=== PATIENT | male | born 2005 | race Caucasian/White ===

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

== ENCOUNTER 2024-08-22 22:31 | Outpatient (REF) | payer MEDICAID, SELFPAY ==
--- OUTSIDE RECORDS SUMMARY | 2024-08-22 22:33 | XMS_ITS | Encounter Summary ---
Author Organization [facility] [place] [address] Care Team Providers Care Talking Books Library Clerk Name Role Phone Gricel Geronimo MD Primary Care Provider [phone] Encounter Details Date Type Department Care Team (Late st Contact Info) Description 08/06/2020 Ancillary Procedure Radiology Library at [facility] [place] [address] Gricel Geronimo MD [address] [place], [place] [id number] Social History Tobacco Use Types Packs/Day Years Used Date Smoking Tobacco: Never Assessed Sex and Gender Information Value Date Recorded Sex Assigned at Not on file Gender Identity Not on file Sexual Orientation Not on file documented as of this encounter Plan of Treatment Not on file documented as of this encounter Procedures Procedure Name Priority Date/Time Associated Diagnosis Comments FILM LIBRARY STORAGE ONLY DX HAND Routine 08/06/2020 12:00 AM EDT documented in this encounter Results * Film Library- Storage Only DX Hand (08/06/2020 12:00 AM EDT) Narrative RAD - 08/07/2020 5:03 PM EDT This exam is auto-finalizing. It's purpose is for storage only. Gricel Geronimo MD IMG FILM LIBRARY ORD ERABLES [place], [place] documented in this encounter Visit Diagnoses Not on filedocumented in this encounter Care Teams Talking Books Library Clerk Relationship Specialty Start Date End Date Gricel Geronimo MD [address] [place] [address] PCP - General Pediatrics 07/09/18 documented as of this encounter
--- OUTSIDE RECORDS SUMMARY | 2024-08-22 22:33 | XMS_ITS | Encounter Summary ---
Author Organization [facility] [place] [address] Care Team Providers Care Sail Repairer Name Role Phone Gricel Geronimo MD Primary Care Provider [phone] Encounter Details Date Type Department Care Team (Late st Contact Info) Description 09/21/2020 Telephone Pediatric [place] [phone] Isabela Watkins APRN [facility] PEDIATRIC [place] [address] Social History Tobacco Use Types Packs/Day Years Used Date Smoking Tobacco: Never Smokeless Tobacco: Never Sex and Gender Information Value Date Recorded Sex Assigned at Not on file Gender Identity Not on file Sexual Orientation Not on file documented as of this encounter Miscellaneous Notes * Telephone Encounter - Isabela Watkins APRN - 09/21/2020 10:37 AM EST Results for BROOKLYNN GUERRERO ( ) as of 09/21/2020 10:37 Ref. Range 09/14/2020 08:50 09/14/2020 09:20 09/14/2020 09:50 09/14/2020 10:20 09/14/2020 10:55 09/14/2020 11:30 09/14/2020 12:00 Cortisol Latest Units: mcg/dL 17.3 Growth Hormone Latest Units: ng/mL 15.6 4.1 2.4 1.0 0.6 1.5 5.2 Growth H. Time Unknown 0 Min. 30 Min. Post cloNIDine 60 Min. Post Arginine 90 Min. Post cloNIDine 0Min. Post Arginine 30 Min. Post Arginine 60 Min. Post cloNIDine A/P Provocative testing with one value (baseline) > 10, ruling out GH deficiency. To continue with Anastrozole as prescribed. Will reassess growth velocity in six months. If sub optimal, will try to obtain GH due to GH stimulation values < 10. Left message re: above results and plan. documented in this encounter Plan of Treatment Not on file documented as of this encounter Visit Diagnoses Not on filedocumented in this encounter Care Teams Sail Repairer Relationship Specialty Start Date End Date Gricel Geronimo MD [address] [place] [address] PCP - General Pediatrics 07/09/18 documented as of this encounter
--- OUTSIDE RECORDS SUMMARY | 2024-08-22 22:33 | XMS_ITS | Encounter Summary ---
Author Organization [facility] [place] [address] Care Team Providers Care Audit Manager Name Role Phone Gricel Geronimo MD Primary Care Provider [phone] Encounter Details Date Type Department Care Team (Late st Contact Info) Description 10/21/2022 Orders Only [place] [address] Isabela Watkins APRN [facility] [place] [address] Social History Tobacco Use Types Packs/Day Years [...] on filedocumented in this encounter Care Teams Audit Manager Relationship Specialty Start Date End Date Gricel Geronimo MD [address] [place] [address] [place] [address] PCP - General Pediatrics 07/09/18 documented as of this encounter
--- OUTSIDE RECORDS SUMMARY | 2024-08-22 22:33 | XMS_ITS | Encounter Summary ---
Author Organization [facility] [place] [address] Care Team Providers Care Medicine Aide Name Role Phone Gricel Geronimo MD Primary Care Provider [phone] Encounter Details Date Type Department Care Team (Late st Contact Info) Description 09/10/2020 Telephone Pediatric [place] [phone] Isabela Watkins APRN [facility] PEDIATRIC [place] [address] Social History Tobacco Use Types Packs/Day Years Used Date Smoking Tobacco: Never Assessed Sex and Gender Information Value Date Recorded Sex Assigned at Not on file Gender Identity Not on file Sexual Orientation Not on file documented as of this encounter Miscellaneous Notes * Telephone Encounter - Isabela Watkins APRN - 09/10/2020 3:56 PM EST Received call from mom. After reviewing potential side effects, family would like to move forth with Anastrozole. GHT scheduled for 09/14/20. documented in this encounter Plan of Treatment Not on file documented as of this encounter Visit Diagnoses Diagnosis Short stature documented in this encounter Care Teams Medicine Aide Relationship Specialty Start Date End Date Gricel Geronimo MD [address] [place] [address] [place] [address] PCP - General Pediatrics 07/09/18 documented as of this encounter
--- OUTSIDE RECORDS SUMMARY | 2024-08-22 22:33 | XMS_ITS | Encounter Summary ---
Author Organization [facility] Address [address] [place] [address] Care Team Providers Care Administrative Clerk Name Role Phone Unavailable Primary Care Provider Unavailabl e Encounter Details Date Type Department Care Team (Late st Contact Info) Description 07/20/2021 Lab Requisition [facility] Pathology & Laboratory Medicine - [facility] [address] [place] [address] Outr Resulting Lab, Provider Social History Tobacco Use Types Packs/Day Years Used Date Smoking Tobacco: Never Assessed Sex and Gender Information Value Date Recorded Sex Assigned at Not on file Legal Sex Male 10:17 EDT Gender Identity Not on file Sexual Orientation Not on file documented as of this encounter Plan of Treatment Not on file documented as of this encounter Procedures Procedure Name Priority Date/Time Associated Diagnosis Comments ZZCOVID-19 TEST [facility] PCR Today 07/19/2021 17:05 EDT COVID-19 TESTING Routine 07/19/2021 17:0 5 EDT documented in this encounter Results * COVID-19 TEST [facility] PCR (07/19/2021 17:05 EDT) Swab ENTIRE NASOPHARYNX / Unknown 07/19/2021 17:05 EDT 07/20/2021 16:53 EDT us Provider Outr Resulting Lab MICROBIOLOGY - GENER AL ORDERABLES Final Result [facility] [address] [place] [address] * COVID-19 TESTING (07/19/2021 17:05 EDT) COVID-19 rt-PCR Result Negative Negative 07/21/2021 15:29 EDT [facility] Comment: This test has not been FDA cleared or approved. This test has been authorized by FDA under an EUA for use by authorized laboratories. This test has been authorized only for detection of nucleic acid from 2019-nCoV, not for any other viruses or pathogens. This test is only authorized for the duration of the declaration that circumstances exist justifying the authorization of emergency use of in vitro diagnostic tests for detection and/or diagnosis of 2019-nCoV under section 564(b)(1) of Act, 21 U.S.C ?? 360bbb-3(b) (1), unless the authorization is terminated or revoked sooner. Negative results do not preclude 2019-nCoV infection and should not be used as the sole basis for treatment or other patient management decisions. Negative results must be combined with clinical observations, patient history, and epidemiological information. This test was developed and its performance characteristics determined by [facility]. It has not been cleared or approved by the US Food and Drug Administration. FDA does not require this test to go through premarket FDA review. This test is used for clinical purposes. It should not be regarded as investigational or for research. This laboratory is certified under the Clinical Laboratory Improvement Amendments (CLIA) as qualified to perform high complexity clinical laboratory testing. This test is based on the CDC COVID-19 Emergency Use Authorization (EUA) assay, with minor modification as defined by the FDA Performed on the Eligibleo 7 Pro RT-PCR System. Performing Lab [facility] 07/21/2021 15:29 EDT [facility] Swab 07/19/2021 17:0 5 EDT 07/20/2021 16:53 EDT us Provider Outr Resulting Lab MICROBIOLOGY - GENER AL ORDERABLES Final Result [facility] [address] [place] [address] documented in this encounter Visit Diagnoses Not on filedocumented in this encounter
--- OUTSIDE RECORDS SUMMARY | 2024-08-22 22:33 | XMS_ITS | Encounter Summary ---
Author Organization [facility] [place] [address] Care Team Providers Care Dental Practitioner Name Role Phone Gricel Geronimo MD Primary Care Provider [phone] Encounter Details Date Type Department Care Team (Late st Contact Info) Description 10/24/2022 Telephone Pediatric [place] [address] Isabela Watkins APRN [facility] [place] [address] Social History Tobacco Use Types Packs/Day Years Used Date Smoking Tobacco: Never Smokeless Tobacco: Never Sex and Gender Information Value Date Recorded Sex Assigned at Not on file Gender Identity Not on file Sexual Orientation Not on file documented as of this encounter Miscellaneous Notes * Telephone Encounter - Isabela Watkins APRN - 10/24/2022 12:31 PM EST Received written copy of bone age 110/18/22 with radiology reading of BA = 16 years (G&P), showing that epiphyses are closed. No further treatment indicated. Tried calling number on file several times. No answer. No voice mail set up. documented in this encounter Plan of Treatment Not on file documented as of this encounter Visit Diagnoses Not on filedocumented in this encounter Care Teams Dental Practitioner Relationship Specialty Start Date End Date Gricel Geronimo MD [address] [place] [address] [place] [address] PCP - General Pediatrics 07/09/18 documented as of this encounter
--- OUTSIDE RECORDS SUMMARY | 2024-08-22 22:33 | XMS_ITS | Clinical Summary ---
Author Organization [facility] [place] [address] Care Team Providers Care Retail Cashier Associate Name Role Phone Gricel Geronimo MD Primary Care Provider [phone] Allergies Active Allergy Reactions Criticality Noted Date Comments Cefdinir Rash 09/14/2020 Penicillins Rash 09/14/2020 Medications No known medications Active Problems Problem Noted Date Diagnosed Date Short stature Pubertal delay Allergies Anxiety Depression Autism Family History Medical History Relation Comments Asthma Father Mental Illness Father Depression Mother Autoimmune Disorder Neg Hx Celiac Disease Neg Hx Other Neg Hx short stature Thyroid Disease Neg Hx Relation Status Comments Father Mother Alive Sister Alive Social History Tobacco Use Types Packs/Day Years Used Date Smoking Tobacco: Never Smokeless Tobacco: Never Sex and Gender Information Value Date Recorded Sex Assigned at Not on file Gender Identity Not on file Sexual Orientation Not on file Last Filed Vital Signs Vital Sign Reading Time Taken Comments Blood Pressure 127/67 08/06/2021 10:50 AM EDT Pulse 78 08/06/2021 10:50 AM EDT Temperature - - Respiratory Rate - - Oxygen Saturation - - Inhaled Oxygen Concentration - - Weight 62.5 kg (137 lb 14.4 oz) 021 10:50 AM EDT Height 164.9 cm (5' 4.92) 08/06/2021 1 0:50 AM EDT Body Mass Index 23 08/06/2021 10:50 AM EDT Plan of Treatment Health Maintenance Due Date Last Done Comments HPV vaccine (1 - Male 3-dose series) 02/25/2019 HIV screen 02/25/2022 Hepatitis C Screening 02/25/2022 Hepatitis B vaccine (0-59 yrs) (1) 02/25/2023 Tetanus/Diphtheria/Pertussis Vaccines (1 - Tdap) 02/25 Covid-19 Vaccine (1 - 2024-25 season) 2024 Influenza (Flu) vaccine (1 o f 1 - Influenza standard series) 06/09/2024 Care Teams Retail Cashier Associate Relationship Specialty Start Date End Date Gricel Geronimo MD [address] [place] [place] [address] PCP - General Pediatrics 07/09/18
--- OUTSIDE RECORDS SUMMARY | 2024-08-22 22:33 | XMS_ITS | Encounter Summary ---
Author Organization [facility] [place] [address] Care Team Providers Care Gate Shear Operator Name Role Phone Gricel Geronimo MD Primary Care Provider [phone] Encounter Details Date Type Department Care Team (Late st Contact Info) Description 04/05/2021 Orders Only Pediatric [place] [address] Angeline Petersen, MISSION COORDINATOR [facility] DR PEDIATRIC [place] [address] Short stature Social History Tobacco Use Types Packs/Day Years [...] stature documented in this encounter Care Teams Gate Shear Operator Relationship Specialty Start Date End Date Gricel Geronimo MD [address] [place] [address] [place] [address] PCP - General Pediatrics 07/09/18 documented as of this encounter
--- OUTSIDE RECORDS SUMMARY | 2024-08-22 22:33 | XMS_ITS | Encounter Summary ---
Author Organization [facility] [address] Care Team Providers Care Plastic Welder Name Role Phone Gricel Geronimo MD Primary Care Provider [phone] Encounter Details Date Type Department Care Team (Late st Contact Info) Description 09/10/2020 Telephone Pediatric [place] [phone] Isabela Watkins APRN [facility] [place] [address] Social History Tobacco Use Types Packs/Day Years Used Date Smoking Tobacco: Never Assessed Sex and Gender Information Value Date Recorded Sex Assigned at Not on file Gender Identity Not on file Sexual Orientation Not on file documented as of this encounter Miscellaneous Notes * Telephone Encounter - Isabela Watkins APRN - 09/10/2020 3:43 PM EST Results for BROOKLYNN GUERRERO ( ) as of 09/10/2020 15:39 Ref. Range 09/07/2020 14:44 WBC Latest Ref Range: 4.5 - 13.0 x10(3)/mcL 6.5 RBC Latest Ref Range: 4.50 - 5.30 x10(6)/mcL 4.51 Hemoglobin Latest Ref Range: 13.0 - 16.0 gm/dL 13.3 Hematocrit Latest Ref Range: 37.0 - 49.0 % 39.8 MCV Latest Ref Range: 76.0 - 96.0 fL 88.2 MCH Latest Ref Range: 25.0 - 35.0 pg 29.5 MCHC Latest Ref Range: 32.0 - 36.5 gm/dL 33.4 RDWSD Latest Ref Range: 36.0 - 45.0 fL 39.2 RDWCV Latest Ref Range: 0.0 - 14.5 % 12.2 Platelets Latest Ref Range: 145 - 370 x10(3)/mcL 321 MPV Latest Ref Range: 7.6 - 12.9 fL 10.1 nRBC % Auto Latest Units: % 0.0 nRBC Abs Auto Latest Ref Range: 0.000 - 0.000 x10(3)/mcL 0.000 Neutr Abs (ANC) Latest Ref Range: 1.50 - 8.00 x10(3)/mcL 3.23 Neutrophils % Latest Units: % 50.0 Immature Gran % Latest Units: % 0.20 Lymphocytes % Latest Units: % 42.1 Monocytes % Latest Units: % 6.0 Eosinophils % Latest Units: % 1.5 Basophils % Latest Units: % 0.2 Ivania Gran Abs Latest Ref Range: 0.00 - 0.04 x10(3)/mcL 0.01 Lymphocytes Abs Latest Ref Range: 1.2 - 5.2 x10(3)/mcL 2.7 Monocyte Abs Latest Ref Range: 0.2 - 1.0 x10(3)/mcL 0.4 Eosinophils Abs Latest Ref Range: 0.0 - 0.4 x10(3)/mcL 0.1 Basophils Abs Latest Ref Range: 0.0 - 0.1 x10(3)/mcL 0.0 Sed Rate Latest Ref Range: 2 - 28 mm/hr 3 Sodium Latest Ref Range: 135 - 145 mmol/L 140 Potassium Latest Ref Range: 3.5 - 5.0 mmol/L 4.0 Chloride Latest Ref Range: 98 - 107 mmol/L 102 CO2 Latest Ref Range: 22 - 31 mmol/L 28 Anion Gap Latest Ref Range: 5 - 15 mmol/L 10 BUN Latest Ref Range: 10 - 20 mg/dL 8 (L) Creatinine Latest Ref Range: 0.51 - 1.00 mg/dL 0.52 Estimated GFR Latest Ref Range: >=60 mL/min/1.73 m?? See note eGFR Latest Ref Range: >=60 mL/min/1.73 m?? See note Calcium Latest Ref Range: 8.5 - 10.5 mg/dL 9.7 Glucose Lvl Latest Ref Range: 65 - 199 mg/dL 97 Total Protein Latest Ref Range: 6.4 - 8.3 gm/dL 7.4 Albumin Latest Ref Range: 3.2 - 5.2 gm/dL 5.1 Total Bilirubin Latest Ref Range: <=1.0 mg/dL 0.8 Alk Phos Latest Ref Range: 82 - 331 unit/L 237 AST Latest Ref Range: 10 - 40 unit/L 22 ALT Latest Ref Range: 0 - 40 unit/L 15 IgA Latest Ref Range: 61 - 348 mg/dL 215 TTG IgA Ab Latest Ref Range: 0.1 - 10.0 u/ml 0.3 Free T4 Latest Ref Range: 0.93 - 1.70 ng/dL 1.11 TSH Latest Ref Range: 0.27 - 4.20 mcIU/mL 2.16 Prolactin Latest Ref Range: 4.0 - 15.2 ng/mL 11.9 IGF Bind Prot-3 Latest Units: mcg/mL 7.2 IgF-1 Latest Units: ng/mL 312 IGF-1 Z-score Latest Ref Range: -2.0 - 2.0 SD -0.13 A/P Normal labs. Will move forth with provocative testing to rule out growth hormone deficiency 09/14/20. documented in this encounter Plan of Treatment Not on file documented as of this encounter Visit Diagnoses Not on filedocumented in this encounter Care Teams Plastic Welder Relationship Specialty Start Date End Date Gricel Geronimo MD [address] [place] [address] PCP - General Pediatrics 07/09/18 documented as of this encounter
--- OUTSIDE RECORDS SUMMARY | 2024-08-22 22:33 | XMS_ITS | Encounter Summary ---
Author Organization [facility] [place] [address] Care Team Providers Care Ground Operations Crew Member Name Role Phone Gricel Geronimo MD Primary Care Provider [phone] Encounter Details Date Type Department Care Team (Latest Contact Info) Description 08/06/2021 11:15 AM EDT - 08/06/2021 11:59 PM EDT Hospital Encounter XRay at [address] [place] [address] Isabela Watkins APRN [facility] PEDIATRIC [place] [address] Short stature Discharge Disposition: Home Social History Tobacco Use Types Packs/Day Years Used Date Smoking Tobacco: Never Smokeless Tobacco: Never Sex and Gender Information Value Date Recorded Sex Assigned at Not on file Gender Identity Not on file Sexual Orientation Not on file documented as of this encounter Medications at Time of Discharge Medication Sig Dispensed Refills Start Date End Date anastrozole (Arimidex) 1 mg TabletIndications:Short stature Take 1 tablet by mouth daily. 90 tablet 1 04/05/2021 10/21/2022 documented as of this encounter Plan of Treatment Not on file documented as of this encounter Procedures Procedure Name Priority Date/Time Associated Diagnosis Comments XR BONE AGE Routine 08/06/2021 11:37 AM EDT Short stature documented in this encounter Results * XR Bone Age (Generic) (08/06/2021 11:37 AM EDT) Anatomical Region Laterality Modality N/A Digital Radiogra phy Impressions 08/06/2021 11:55 AM EDT Bone age within but at the lower limits of normal. Thank you for letting us participate in the care of this patient. ??If you are a health care provider and have any questions regarding this report, please contact the number below. ??For patients who have questions please contact the health child care attendant that requested your imaging first. ? Narrative 08/06/2021 11:55 AM EDT EXAMINATION: XR BONE AGE (GENERIC) CLINICAL HISTORY: 16-y/o male with short stature. ??Please calculate bone age. Thanks. TECHNIQUE: Left hand and wrist for bone age. COMPARISON: None FINDINGS: The patient's chronological age is: 16 years 5 months Estimated bone age per the standard of Greulich and Juarez is: 14 years 6 months 2 standard deviations for this chronological age is: 26 months Bone mineralization is: Normal Additional findings: Bones appear normally formed Procedure Note Arun Puri MD - 08/06/2021 EXAMINATION: XR BONE AGE (GENERIC) CLINICAL HISTORY: 16-y/o male with short stature. Please calculate boneage. Thanks. TECHNIQUE: Left hand and wrist for bone age. COMPARISON: None FINDINGS: The patient's chronological age is: 16 years 5 months Estimated bone age per the standard of Greulich and Juarez is: 14 years 6months 2 standard deviations for this chronological age is: 26 months Bone mineralization is: Normal Additional findings: Bones appear normally formed IMPRESSION Bone age within but at the lower limits of normal. Thank you for letting us participate in the care of this patient. If youare a health care provider and have any questions regarding this report,please contact the number below. For patients who have questions please contactthe health child care attendant that requested your imaging first. Isabela Watkins APRN IMG DX ORDERABLES documented in this encounter Visit Diagnoses Diagnosis Short stature documented in this encounter Care Teams Ground Operations Crew Member Relationship Specialty Start Date End Date Gricel Geronimo MD [address] [place] [address] [place] [address] PCP - General Pediatrics 07/09/18 documented as of this encounter
--- OUTSIDE RECORDS SUMMARY | 2024-08-22 22:33 | XMS_ITS | Encounter Summary ---
Author Organization [facility] [place] [address] Care Team Providers Care Vocational Evaluator Name Role Phone Gricel Geronimo MD Primary Care Provider [phone] Encounter Details Date Type Department Care Team (Late st Contact Info) Description 07/25/2022 Telephone [facility] [place] [phone] Claudia Velasquez Social History Tobacco Use Types Packs/Day Years Used Date Smoking Tobacco: Never Smokeless Tobacco: Never Sex and Gender Information Value Date Recorded Sex Assigned at Not on file Gender Identity Not on file Sexual Orientation Not on file documented as of this encounter Miscellaneous Notes * Telephone Encounter - Claudia Velasquez - 07/25/2022 10:36 AM EDT 07/19 called, line rang 2x then went silent no vm option. home phone was no longer connected to patient removed from chart, is now someone else all togethers phone number 07/25 called to schedule rang 2x went silent. Sent attempt letter documented in this encounter Plan of Treatment Not on file documented as of this encounter Visit Diagnoses Not on filedocumented in this encounter Care Teams Vocational Evaluator Relationship Specialty Start Date End Date Gricel Geronimo MD [address] [place] [address] [place] [address] PCP - General Pediatrics 07/09/18 documented as of this encounter
--- OUTSIDE RECORDS SUMMARY | 2024-08-22 22:33 | XMS_ITS | Encounter Summary ---
Author Organization [facility] [place] [address] Care Team Providers Care Health Aid Name Role Phone Gricel Geronimo MD Primary Care Provider [phone] Encounter Details Date Type Department Care Team (Late st Contact Info) Description 04/05/2021 11:00 AM EDT Office Visit [place] [phone] Angeline Petersen [employer] [facility] [place] [address] Short stature Social History Tobacco Use Types Packs/Day Years Used Date Smoking Tobacco: Never Smokeless Tobacco: Never Sex and Gender Information Value Date Recorded Sex Assigned at Not on file Gender Identity Not on file Sexual Orientation Not on file documented as of this encounter Progress Notes * Angeline Petersen APRN - 04/05/2021 11:00 AM EDT Images from the original note were not included. Reason for Visit: Initial consultation for short stature HPI: Adrian Leonard is a 16 y.o. 1 m.o. adolescent male, history of autism, who [facility] Gricel Geronimo, for further evaluation of above. Accompanied by mom and step dad who assist in providing the past medical history. He was initially evaluated for short stature in August of 2020. GH testing done in September 2020 was negative and bone age delayed. Normal thyroid studies. He was placed on anastrozole and is here today for interim growth check and management. Over the interim Adrian is pleased with his growth as is the family. He is a bit concerned today that he needs blood work. He feels as though he has had more genital growth and family has noticed a change in his voice. He is also shaving facial hair. Growth charts: Interval growth 3 cm. 5.5 cm annualized. Bone age 1008/06/20: Bone age read as bone age closer to 14-years, chronological age 16-2/12 ths years. Past medical history: Reviewed. Past Medical History: Diagnosis Date ??? Allergies ??? Anxiety ??? Autism ??? Depression ??? Pubertal delay ??? Short stature Past social history: Reviewed. Lives with: mom, step dad , sister Grade in school: 11 th grade Extracurricular Activities: computers Step dad's occupation: [employer] Family history: Family History Problem Relation Age of Onset ??? Depression Mother ??? Asthma Father ??? Mental Illness Father ??? Other Neg Hx short stature ??? Thyroid Disease Neg Hx ??? Celiac Disease Neg Hx ??? Autoimmune Disorder Neg Hx Current Outpatient Medications on File Prior to Visit Medication Sig Dispense Refill ??? anastrozole (Arimidex) 1 mg Tablet Take 1 tablet by mouth daily. 90 tablet 1 ??? [DISCONTINUED] anastrozole (Arimidex) 1 mg Tablet Take 1 tablet by mouth daily. 90 tablet 1 No current facility-administered medications on file prior to visit. Allergies: Allergies as of 04/05/2021 - Review Complete 04/05/2021 Allergen Reaction Noted ??? Omnicef [cefdinir] Rash 09/14/2020 ??? Pcn [penicillins] Rash 09/14/2020 Review of Systems: General: Overall, good general health. EENT: No history of recurrent throat/ear infections. No cough. No hearing difficulties. Respiratory: No history of respiratory infections. Cardiac: No history of heart murmurs. Neuro: No history of seizures. No history of headaches. Thyroid: Good energy. No cold intolerance. GI: No history of constipation or diarrhea. Food/Fluid: Denies excessive thirst or urination. : No history of frequent urination, urinary tract infections. Muscle/Bone: No complaints of joint or muscle pain. Skin: No rashes. Sleep: No problems falling or staying asleep. Pediatric Vitals 04/05/2021 B/P - Systolic 126 B/P - Diastolic 81 Systolic percentile 86.2 Diastolic percentile 94.6 Pulse Height to cm. 163.4 cm Height in feet/inches 5' 4.331 Height in inches 64 in Height percentile 5.3 Weight (Puerto Rican) 138 lb 3.2 oz Weight (Metric) 62.687 kg Weight percentile 41.6 BMI 23.48 kg/m2 BMI percentile 74.9 Normal Abnormal Comments Tone/Appearance X Small size. Appears younger than stated age. Skin X Oily skin, few pimples Head/Neck/thyroid X No thyromegaly, no notable nodules Eyes X ENT X OP clear Teeth X Lungs X Heart X NRR. No murmer Abdomen X SNT. Genitalia/breasts X Deferred Musculoskeletal X Active problems: Patient Active Problem List Diagnosis Code ??? Short stature R62.52 ??? Pubertal delay E30.0 ??? Allergies T78.40XA ??? Anxiety F41.9 ??? Depression F32.9 ??? Autism F84.0 Assessment / Plan: Adrian is a 16 y.o. 1 m.o. healthy, adolescent male, history as noted above, who is being seen for further evaluation/management of short stature. He has grown over the interm and he and family are happy with his growth. Case was reviewed with Dr. Ray Brooks. Because of his pubertal advancement at this time, his is not a candidate for GH therapy. I did review growth charts withthe family. Recommended continuing the anastrozole to try and optimize the remainder of his growth and see him back in 4 months time. Family was happy with the plan. documented in this encounter Plan of Treatment Not on file documented as of this encounter Visit Diagnoses Diagnosis Short stature documented in this encounter Care Teams Health Aid Relationship Specialty Start Date End Date Gricel Geronimo MD [address] [place] [address] PCP - General Pediatrics 07/09/18 documented as of this encounter
--- OUTSIDE RECORDS SUMMARY | 2024-08-22 22:33 | XMS_ITS | Encounter Summary ---
Author Organization [facility] [place] [address] Care Team Providers Care Management Planner Name Role Phone Gricel Geronimo MD Primary Care Provider [phone] Reason for Visit * Consultation (Routine) - Closed Specialty Diagnoses / Procedures Referred By Ruy eden Referred To Contact Pediatric Endocrinology Diagnoses Short stature (child) Gricel Geronimo MD [address] [place] [address] [place] [address] [facility] Pedi Endo [address] [place] [phone] Referral ID Status Reason Start Date Expiration Date V isits Requested Visits Authorized [id number] Closed Consult, Test & Treat Connection Center PCP Updated and/or Approved 08/12/2020 08/12/2021 6 6 Encounter Details Date Type Department Care Team (Late st Contact Info) Description 09/07/2020 2:00 PM EST Office Visit [place] [address] Isabela Watkins APRN [facility] PEDIATRIC [place] [address] Short stature Social History Tobacco Use Types Packs/Day Years Used Date Smoking Tobacco: Never Assessed Sex and Gender Information Value Date Recorded Sex Assigned at Not on file Gender Identity Not on file Sexual Orientation Not on file documented as of this encounter Last Filed Vital Signs Vital Sign Reading Time Taken Comments Blood Pressure 121/60 09/07/2020 1:33 PM EST Pulse 79 09/07/2020 1:33 PM EST Temperature - - Respiratory Rate - - Oxygen Saturation - - Inhaled Oxygen Concentration - - Weight 56.7 kg (125 lb) 09/07/2020 1:33 PM EST Height 159.9 cm (5' 2.95) 09/07/2020 1:33 PM ES T Body Mass Index 22.18 09/07/2020 1:33 PM EST Body Mass Index Percentile 66.30% 09/07/2020 1:3 3 PM EST Growth Chart: [facility] (Boys, 2-2 0 Years) documented in this encounter Patient Instructions * Patient Instructions* Isabela Watkins APRN - 09/07/2020 2:00 PM EST ARIMIDEX USE IN CHILDREN: 1. We would be using Arimidex off label to delay bone maturation. 2. There is limited data on the use of Arimidex in this setting. 3. We sometimes see elevated liver functions and we would periodically screen for this during treatment. 4. Arimidex can be used only short term. 5. There was one study which showed u-shaped vertebral bodies in prepubertal children who received aromatase inhibitors. documented in this encounter Progress Notes * Isabela Watkins APRN - 09/07/2020 2:00 PM EST Images from the original note were not included. Reason for Visit: Initial consultation for short stature HPI: Adrian Leonard is a 16-6/12 ths, year-old, healthy, adolescent male, history of autism, who is being seen at the request of Dr. Gricel Geronimo, for further evaluation of above. Accompanied by mom and step dad who assist in providing the past medical history. Family report that Adrian has always on lower percentiles. However, more concern over the last two years that he was not on track to reach an adult height within his genetic potential. He has a 13-y/osister who is taller at 5 ft 6 inches. Short stature ROS/PCP chart/growth chart/bone age review as noted below. Overall, general health is good. Remainder of systems as noted below. Short stature ROS: [x] Yes [] No Always been on smaller side. [] Yes [x] No Family history of short stature [] Yes [x] No Bothered by small size. [] Yes [x] No Change in clothes size throughout the year [] Yes [x] No Change in shoe size throughout the year [x] Yes [] No Puberty started - axillary/body odor/pubic hair [] Yes [x] No Family history of pubertal delay [] Yes [x] No Good appetite [] Yes [x] No Constipation [] Yes [x] No Diarrhea [] Yes [x] No Change in energy level [] Yes [x] No Problems gaining weight Growth charts: Laboratory evaluation through PCP: Will obtain today. Bone age 1008/06/20: Bone age reviewed and read as bone age closer to 14-years, chronological age 16-11/20 ths years. Past medical history: Reviewed. Past Medical History: Diagnosis Date ??? Allergies ??? Anxiety ??? Autism ??? Depression ??? Pubertal delay ??? Short stature Past surgical history: Reviewed. None. Past social history: Reviewed. Lives with: mom, step dad , sister Grade in school: 10 th grade, [employer]. Going well. Extracurricular Activities: computers Step dad's occupation: [employer] Family history: Reviewed. Mom 5 ft 3 inches. Dad 6 ft. Family History Problem Relation Age of Onset ??? Depression Mother ??? Asthma Father ??? Mental Illness Father ??? Other Neg Hx short stature ??? Thyroid Disease Neg Hx ??? Celiac Disease Neg Hx ??? Autoimmune Disorder Neg Hx Medications: None. Allergies: Allergies as of 09/07/2020 ??? (No Known Allergies) Immunizations: Up-to-date. Review of Systems: General: Overall, good general [...] Sleep: No problems falling or staying asleep. Physical Exam: Adrian is a 16-6/12 ths, year-old, pleasant, adolescent male. 09/07/20 1:33 PM BP 121/60?? Pulse 79?? Weight 56.7??kg??(125??lb)?? Height 159.9??cm??(5'??2.95)?? Pain Score ?0??-??No??pain?? Age Percentiles BP 80 % / 39 % Weight 26 % Height 3 % BMI 66 % Other Vitals BMI 22.18 kg/m2 BSA 1.59 m2 Normal Abnormal Comments Tone/Appearance X Small size. Appears younger than stated age. No dysmorphic features. Skin X Oily skin, few pimples Head/Neck/thyroid X No thyromegaly Eyes X ENT X Teeth X Lungs X Heart X Abdomen X Genitalia/breasts X Bilateral testicular volumes 20 MLS, Roland Stage 4. Pubic hair Roland Stage 4 Musculoskeletal X Normal metacarpals. No Madelung deformity Active problems: Patient Active Problem List Diagnosis Code ??? Short stature R62.52 ??? Pubertal delay E30.0 ??? Allergies T78.40XA ??? Anxiety F41.9 ??? Depression F32.9 ??? Autism F84.0 Assessment: Adrian is a 16-6/12 ths, year-old, healthy, adolescent male, history as noted above, whois being seen for further evaluation/management of short stature. In reviewing PCP growth charts, Adrian has consistently tracked below normal percentiles for height. He does appear to have had his pubertal growth spurt this past year which is consistent with Roland Staging on today's exam. His boneage is delayed showing two years of catch up potential. There is no history/clinical findings suggestive of underlying genetic disorder such as SHOX mutation. We agreed to obtain screening labs today to rule out underlying endocrinopathy that could account for his small size. We also discussed off label use of Anastrozole to slow down bone maturation and written information given for review. Given Adrian's age and short size in comparison to the mid parental height, will quickly move forth with provocative testing to rule out growth hormone deficiency. Questions/concerns addressed. Family comfortable with today's plan. Plan: 1. TSH, FT4, CBC, CMP, ESR, IgA, TTG, IGF-1, IGFBP-3, and prolactin today. 2. Provocative testing for growth hormone deficiency 09/14/20 8 AM. Copy: Gricel Geronimo MD [address] [place] [address] . documented in this encounter Plan of Treatment Not on file documented as of this encounter Procedures Procedure Name Priority Date/Time Associated Diagnosis Comments HC PCH SOMATOMEDIN-C (IGF 1) Routine 09/07/2020 2:44 PM EST Short stature HEMOGRAM Routine 09/07/2020 2:44 PM EST Short stature DIFFERENTIAL, AUTOMATED Routine 09/07/20 20 2:44 PM EST Short stature HC VENIPUNCTURE Routine 09/07/2020 2:44 PM EST Short stature HC TISSUE TRANSGLUTAMINASE AB Routine 09/07/2020 2:44 PM EST Short stature PROLACTIN Routine 09/07/2020 2:44 PM EST HC ESR-SEDIMENTATION RATE, BLOOD Routine 09/07/2020 2:44 PM EST Short stature HC CBC,PLT & AUTO DIFF Routine 0 2:44 PM EST Short stature HC THYROID STIMULATING HORMONE, SERUM Routine 09/07/2020 2:44 PM EST Short stature HC FREE THYROXINE (T4) Routine 0 2:44 PM EST Short stature HC IGA, SERUM Routine 09/07/2020 2:44 PM EST Short stature COMPREHENSIVE METABOLIC PANEL Routine 09/07/2020 2:44 PM EST Short stature documented in this encounter Results * Prolactin (09/07/2020 2:44 PM EST) Prolactin 11.9 4.0 - 15.2 ng/mL [facility] Blood specimen (specimen) Venous Draw / Unknown 09/07/2020 2:44 PM EST 09/07/2020 3:11 PM EST Narrative Resulting Agency Comment Spec In Lab Isbaela Watkins APRN CHEMISTRY ORDERABLES Performing Organization Address City/[facility] Co de Phone Number [facility] [place] [address] * Differential, Automated (09/07/2020 2:44 PM EST) Neutrophil % 50.0 % [facility] Neutrophil Absolute 3.23 1.50 - 8.00 x10(3)/[facility] Lymph % 42.1 % [facility] Lymphocytes Abs 2.7 1.2 - 5.2 x10(3)/[facility] Monocyte % 6.0 % [facility] Monocyte Abs 0.4 0.2 - 1.0 x10(3)/[facility] Eos % 1.5 % [facility] Eosinophils Abs 0.1 0.0 - 0.4 x10(3)/[facility] Basophil % 0.2 % [facility] Baso Absolute 0.0 0.0 - 0.1 x10(3)/[facility] Immature Gran % 0.20 % [facility] Comment: Immature granulocytes(IG's)percentage and absolute count will include metamyelocytes, myelocytes, and promyelocytes. Blood smears from CBCs yielding IG's will be scanned manually for concordance. If this scan disagrees with the automated IG or if promyelocytes are noted, a manual differential will be performed. Immature Gran Absolute 0.01 0.00 - 0.04 x10(3)/[facility] Blood specimen (specimen) 09/07/2020 2:44 PM EST 09/07/2020 2:48 PM EST Narrative Resulting Agency Comment Spec In Lab Isabela Watkins APRN HEMATOLOGY ORDERABLE S [facility] [place] [address] * Hemogram (09/07/2020 2:44 PM EST) [facility] White Blood Cell 6.5 4.5 - 13.0 x10(3)/[facility] Red Blood Cell 4.51 4.50 - 5.30 x10(6)/[facility] Hemoglobin 13.3 13.0 - 16.0 gm/dL [facility] Hematocrit 39.8 37.0 - 49.0 % [facility] Mean Cell Volume 88.2 76.0 - 96.0 fL [facility] Mean Cell Hemoglobin 29.5 25.0 - 35.0 pg [facility] Mean Cell Hemoglobin Concentration 33.4 32.0 - 36.5 gm/dL [facility] Platelet 321 145 - 370 x10(3)/[facility] RDW Standard Deviation 39.2 36.0 - 45.0 [facility] RDW coefficient of variation 12.2 0.0 - 14.5 % [facility] Mean Platelet Volume 10.1 7.6 - 12.9 fL [facility] NRBC% auto 0.0 % [facility] NRBC Absolute 0.000 0.000 - 0.000 x10(3)/[facility] Blood specimen (specimen) 09/07/2020 2:44 PM EST 09/07/2020 2:48 PM EST Narrative Resulting Agency Comment Spec In Lab Isabela Watkins APRN HEMATOLOGY ORDERABLE S [facility] [place] [address] * IGF Binding Protein-3 (09/07/2020 2:44 PM EST) [facility] IGFBP-3 7.2 mcg/mL [facility] Comment: REFERENCE VALUE 3.4-9.5 Roland Stages: ? Males: I ?1.4-5.2 II ?? 2.3-6.3 III ?? 3.1-8.9 IV ?? 3.7-8.7 V ?2.6-8.6 Test Performed by: [facility] [address] [id number] Instruments Sales Representative: Wilton Mahan M.D. Ph.D.; CLIA# [id number] Blood specimen (specimen) 09/07/2020 2:44 PM EST 09/07/2020 4:16 PM EST Narrative Resulting Agency Comment Spec In Lab Isabela Watkins APRN LAB SEND OUT ORDERAB LES [facility] [place] [address] * (ABNORMAL) Comprehensive metabolic panel (non-fasting) (09/07/2020 2:44 PM EST) Glucose 97 65 - 199 mg/dL [facility] Comment:Diabetes: >=200 mg/d L plus symptoms Blood Urea Nitrogen 8(L) 10 - 20 mg/dL [facility] Creatinine 0.52 0.51 - 1.00 mg/dL [facility] Sodium 140 135 - 145 mmol/L [facility] Potassium 4.0 3.5 - 5.0 mmol/L [facility] Comment: Please note: ??Patients with WBC >100,000 may have falsely elevated Potassium levels. ??For accurate Potassium quantification in these patients send serum separator tube (gold top) for subsequent determinations. ??Contact the Clinical Chemistry Laboratory if there are any questions. Chloride 102 98 - 107 mmol/L [facility] Carbon Dioxide 28 22 - 31 mmol/L [facility] Anion Gap 10 5 - 15 mmol/L [facility] Calcium 9.7 8.5 - 10.5 mg/dL [facility] Protein, Total 7.4 6.4 - 8.3 gm/dL [facility] Albumin 5.1 3.2 - 5.2 gm/dL [facility] Aspartate Aminotransferase 22 10 - 40 unit/L [facility] Alanine Aminotransferase 15 0 - 40 unit/L [facility] Alkaline Phosphatase 237 82 - 331 unit/L [facility] Bilirubin, Total 0.8 <=1.0 mg/dL [facility] Est Glomerular Filtration Rate See note >=60 mL/min/1. 73 m?? [facility] Comment: The eGFR for patients less than 18 years of age should be calculated using the Chamberlain formula. GFR = (0.413 x Height in cm)/serum creatinine. The eGFR was calculated using the CKD-EPI equation. As with all creatinine based estimates of kidney function, eGFR values calculated with the CKD-EPI equation are not accurate in patients with acute kidney failure, extremes of body mass or the acutely ill. [email or web address]ANTnkf eGFR See note >=60 mL/min/1. 73 m?? [facility] Comment: The eGFR for patients less than 18 years of age should be calculated using the Chamberlain formula. GFR = (0.413 x Height in cm)/serum creatinine. The eGFR was calculated using the CKD-EPI equation. As with all creatinine based estimates of kidney function, eGFR values calculated with the CKD-EPI equation are not accurate in patients with acute kidney failure, extremes of body mass or the acutely ill. [email or web address] Blood specimen (specimen) 09/07/2020 2:44 PM EST 09/07/2020 2:48 PM EST Narrative Resulting Agency Comment Spec In Lab Isabela Watkins APRN CHEMISTRY ORDERABLES [facility] [place] [address] * Tissue transglutaminase, IgA (09/07/2020 2:44 PM EST) TTG IgA Ab 0.3 0.1 - 10.0 u/ml [facility] Comment: Negative = <7 U/mL Equivocal = 7-10 U/mL Positive = >10 U/mL Blood specimen (specimen) 09/07/2020 2:44 PM EST 09/08/2020 7:20 AM EST Narrative Resulting Agency Comment Spec In Lab Isabela Watkins APRN IMMUNOLOGY ORDERABLE S Performing Organization Address [facility]/ZIP Co de Phone Number [facility] [place] [address] * IgA (09/07/2020 2:44 PM EST) Pathologist [facility] IgA 215 61 - 348 mg/dL [facility] Blood specimen (specimen) 09/07/2020 2:44 PM EST 09/07/2020 2:47 PM EST Narrative Resulting Agency Comment Spec In Lab Isabela Juneeric LIRA CHEMISTRY ORDERABLES Performing Organization Address [facility] Phone Number [facility] [place] [address] * Sedimentation rate (09/07/2020 2:44 PM EST) [facility] Sedimentation Rate Automated 3 2 - 28 mm/hr [facility] Comment: Effective September 18, 2019 new capillary photometric technology has resulted in a change in reference ranges. It is recommended that each ESR result be reviewed with its own age appropriate reference range. Blood specimen (specimen) 09/07/2020 2:44 PM EST 09/07/2020 2:48 PM EST Narrative Resulting Agency Comment Spec In Lab Isabela Juneeric DURANDN HEMATOLOGY ORDERABLE S Performing Organization Address City/[facility] Co de Phone Number [facility] [place] [address] * TSH (09/07/2020 2:44 PM EST) Pathologist [facility] Thyroid Stimulating Hormone 2.16 0.27 - 4.20 mcIU/mL [facility] Blood specimen (specimen) 09/07/2020 2:44 PM EST 09/07/2020 2:48 PM EST Narrative Resulting Agency Comment Spec In Lab Isabela Watkins PASTEURISER OPERATOR CHEMISTRY ORDERABLES Performing Organization Address [facility] de Phone Number [facility] [place] [address] * T4, free (09/07/2020 2:44 PM EST) Pathologist [facility] Free T4 1.11 0.93 - 1.70 ng/dL [facility] Blood specimen (specimen) 09/07/2020 2:44 PM EST 09/07/2020 2:48 PM EST Narrative Resulting Agency Comment Spec In Lab Isabela Purvisz PASTEURISER OPERATOR CHEMISTRY ORDERABLES Performing Organization Address [facility] de Phone Number [facility] [place] [address] * Insulin Like GF-1 (09/07/2020 2:44 PM EST) Pathologist [facility] Igf-1 Z-Score (FEBRUARY) 312 ng/mL [facility] Comment: REFERENCE VALUE [phone] Roland Stages Males: I ?? 81-255 II ??106-432 III 151-221 IV ??[phone] V ?? [phone] Test Performed by: [facility] [address] [place] [id number] [employer] Sales Representative: Wilton Mahan M.D. Ph.D.; CLIA# [id number] IGF-1 Z-score -0.13 -2.0 - 2.0 SD [facility] Comment: ADDITIONAL INFORMATION This test was developed and its performance characteristics determined by [facility] in a manner consistent with CLIA requirements. This test has not been cleared or approved by the U.S. Food and Drug Administration. Test Performed by: [facility] [address] [place] [address] [employer] Sales Representative: Wilton Mahan M.D. Ph.D.; CLIA# [id number] Blood specimen (specimen) 09/07/2020 2:44 PM EST 09/07/2020 4:16 PM EST Narrative Resulting Agency Comment Spec In Lab Isabela Watkins APRN LAB SEND OUT ORDERAB LES [facility] [place] [id number] documented in this encounter Visit Diagnoses Diagnosis Short stature documented in this encounter Care Teams Management Planner Relationship Specialty Start Date End Date Gricel Geronimo MD [address] [place] [address] PCP - General Pediatrics 07/09/18 documented as of this encounter
--- OUTSIDE RECORDS SUMMARY | 2024-08-22 22:33 | XMS_ITS | Encounter Summary ---
Author Organization [facility] [place] [address] Care Team Providers Care Baseball Glove Shaper Name Role Phone Gricel Geronimo MD Primary Care Provider [phone] Encounter Details Date Type Department Care Team (Late st Contact Info) Description 08/06/2021 Telephone [place] [address] Isabela Watkins APRN [facility] PEDIATRIC [place] [address] Social History Tobacco Use Types Packs/Day Years Used Date Smoking Tobacco: Never Smokeless Tobacco: Never Sex and Gender Information Value Date Recorded Sex Assigned at Not on file Gender Identity Not on file Sexual Orientation Not on file documented as of this encounter Miscellaneous Notes * Telephone Encounter - Isabela Watkins APRN - 08/06/2021 3:50 PM EDT Bone age reviewed and still delayed. Read as bone age closer to 15-6/12 ths years (G&P), chronological age 17-6/12 ths years, showing good catch up potential. Message left at home. documented in this encounter Plan of Treatment Not on file documented as of this encounter Visit Diagnoses Not on filedocumented in this encounter Care Teams Baseball Glove Shaper Relationship Specialty Start Date End Date Gricel Geronimo MD [address] [place] [address] PCP - General Pediatrics 07/09/18 documented as of this encounter
--- OUTSIDE RECORDS SUMMARY | 2024-08-22 22:33 | XMS_ITS | Encounter Summary ---
Author Organization [facility] [place] [address] Care Team Providers Care Data Clerk Name Role Phone Gricel Geronimo MD Primary Care Provider [phone] Encounter Details Date Type Department Care Team (Latest Contact Info) Description 09/14/2020 8:00 AM EST Procedure visit Pediatric Endocrinology at [facility] [place] [address] Isabela Watkins APRN [facility] [address] [place] [address] Low blood pressure reading; Short stature; Light-headed feeling; Dizziness Social History Tobacco Use Types Packs/Day Years Used Date Smoking Tobacco: Never Smokeless Tobacco: Never Sex and Gender Information Value Date Recorded Sex Assigned at Not on file Gender Identity Not on file Sexual Orientation Not on file documented as of this encounter Last Filed Vital Signs Vital Sign Reading Time Taken Comments Blood Pressure 116/57 09/14/2020 7:59 AM EST Pulse 67 09/14/2020 7:59 AM EST Temperature - - Respiratory Rate - - Oxygen Saturation - - Inhaled Oxygen Concentration - - Weight 55.2 kg (121 lb 9.6 oz) 09/14/2020 7:59 A M EST Height 160.4 cm (5' 3.15) 09/14/2020 7:59 AM ES T Body Mass Index 21.44 09/14/2020 7:59 AM EST Body Mass Index Percentile 57.27% 09/14/2020 7:5 9 AM EST Growth Chart: CDC (Boys, 2-2 0 Years) documented in this encounter Patient Instructions * Patient Instructions* Isabela Watkins APRN - 09/14/2020 8:00 AM EST Hormone Testing Patient Instructions 1. Follow-up with your watch inspector to discuss results from today's testing 2. Resume normal activity after testing documented in this encounter Progress Notes * Isabela Watkins APRN - 09/14/2020 8:00 AM EST HPI: Adrian Leonard is a 15 y.o. year-old male is followed here for short stature. Due to growth deceleration, Adrian Leonard is here for provocative testing to confirm/rule out growth hormone deficiency. NPO: Since 1800 last evening Weight: 55.157 kg Testing procedure explained to the patient and family. Questions and concerns were addressed. 0850 0 mins IV access obtained in L AC on second attempt using 24 gauge IVcatheter by myself. One (5 cc) syringe filled with patient???s blood obtained from Peripheral IV and sent for lab testing forglucose, cortisol, and growth hormone. Peripheral IV flushed with 5 cc normal saline. Labeled 0 minutes. 0850 0.25 MG of clonidine given orally. 0920 30 mins (30 minutes after clonidine given). One (5 cc) syringe filled with patient???s blood obtained from Peripheral IVand sent for lab testing for growth hormone. Peripheral IV flushed with 5 cc normal saline. Labeled 30 minutes. 0950 60 mins (60 minutes after clonidine given). One (5 cc) syringe filled with patient???s blood obtained from Peripheral IV and sent for lab testing for growth hormone. Peripheral IV flushed with 5cc normal saline. Labeled 60 minutes. 1020 90 mins (90 minutes after clonidine given). One (5 cc) syringe filled with patient???s blood obtained from Peripheral IV and sent for lab testing for growth hormone. Peripheral IV flushed with 5cc normal saline. Labeled 90 minutes. 1030 IV infusion of 10 % R-gene at a dose of 0.5 MG/KG 1100 Arginine infusion completed. 1100 0 mins (0 mins post arginine infusion). One (5 cc) syringe filled with patient???s blood obtained from Peripheral IV andsent for lab testing for growth hormone. Peripheral IV flushed with 5 cc normal saline. Labeled 0 minutes post arginine infusion. IV bolus 250 ml NS up at this time. 1130 30 mins (30 mins post arginine infusion). One (5 cc) syringe filled with patient???s blood obtained from Peripheral IV and sent for lab testing for growth hormone. Peripheral IV flushed with 5 cc normal saline. Labeled 30 minutes post arginine infusion. Patient up to restroom. Became pale, diaphoretic, complained of dizziness and nausea while in restroom. Immediately assisted to floor, feet raised, cool compress applied. YARN WRAPPER alerted. After approx 5 mins, patient felt better and was wheelchair assisted back to exam room. Additional 200ml saline bolus started at this time.. 1200 60 mins (60 mins post arginine infusion). One (5 cc) syringe filled with patient???s blood obtained from Peripheral IV and sent for lab testing for growth hormone. Peripheral IV flushed with 5 cc normal saline. Labeled 60 minutes post arginine infusion. Patient provided with snack and juice. 1220 - IV NS completed, patient ambulated with one person standby assist, denied any complaints of dizziness or nausea. Total time spent reviewing test and procedure took less than 10 minutes. All specimens of blood andlab slips sent to lab. Peripheral IV discontinued and pressure dressing applied. Family instructed to call with any signs of infection - redness, swelling, pain, or fever. Patient left in stable condition accompanied by family. Addendum: Isabela Tripathi APRN, was personally present during testing. Patient tolerated testing without any adverse events. . documented in this encounter Plan of Treatment Not on file documented as of this encounter Procedures Procedure Name Priority Date/Time Associated Diagnosis Comments HC GROWTH HORMONE Routine 09/14/2020 12: 00 PM EST Short stature HC GROWTH HORMONE Routine 09/14/2020 11: 30 AM EST Short stature HC GROWTH HORMONE Routine 09/14/2020 10: 55 AM EST Short stature HC GROWTH HORMONE Routine 09/14/2020 10: 20 AM EST Short stature HC GROWTH HORMONE Routine 09/14/2020 9:5 0 AM EST Short stature HC GROWTH HORMONE Routine 09/14/2020 9:2 0 AM EST Short stature HC GROWTH HORMONE Routine 09/14/2020 8:5 0 AM EST Short stature HC GLUCOSE, RANDOM Routine 09/14/2020 8: 50 AM EST Short stature HC CORTISOL, BLOOD Routine 09/14/2020 8: 50 AM EST Short stature documented in this encounter Results * Growth hormone (09/14/2020 12:00 PM EST) Growth Hormone 5.2 ng/mL [facility] Comment: Unstimulated hGH values do not have diagnostic relevance due to pulsatile pituitary secretion. In response to provocative agents, a peak stimulated hGH concentration less than 7-10 ng/mL has traditionally supported a diagnosis of growth hormone deficiency in a child with clinical signs and symptoms. However, this cutoff has not been validated for the Angelica assay. Growth H. Time 60 Min. Post cloNIDine [facility] Blood specimen (specimen) 09/14/2020 12:00 PM EST 09/14/2020 12:13 PM EST Narrative Resulting Agency Comment Spec In Lab Isabela Watkins APRN CHEMISTRY ORDERABLES [facility] [place] [address] * Growth hormone (09/14/2020 11:30 AM EST) Growth Hormone 1.5 ng/mL [facility] Comment: Unstimulated hGH values do not have diagnostic relevance due to pulsatile pituitary secretion. In response to provocative agents, a peak stimulated hGH concentration less than 7-10 ng/mL has traditionally supported a diagnosis of growth hormone deficiency in a child with clinical signs and symptoms. However, this cutoff has not been validated for the Angelica assay. Growth H. Time 30 Min. Post Arginine [facility] Blood specimen (specimen) 09/14/2020 11:30 AM EST 09/14/2020 12:04 PM EST Narrative Resulting Agency Comment Spec In Lab Isabela Juneeric DURANDN CHEMISTRY ORDERABLES Performing Organization Address [facility] Co de Phone Number [facility] [place] [address] * Growth hormone (09/14/2020 10:55 AM EST) Growth Hormone 0.6 ng/mL [facility] Comment: Unstimulated hGH values do not have diagnostic relevance due to pulsatile pituitary secretion. In response to provocative agents, a peak stimulated hGH concentration less than 7-10 ng/mL has traditionally supported a diagnosis of growth hormone deficiency in a child with clinical signs and symptoms. However, this cutoff has not been validated for the Angelica assay. Growth H. Time 0 Min. Post Arginine [facility] Blood specimen (specimen) 09/14/2020 10:55 AM EST 09/14/2020 11:05 AM EST Narrative Resulting Agency Comment Spec In Lab Isabela Watkins APRN CHEMISTRY ORDERABLES Performing Organization Address [facility] de Phone Number [facility] [place] [address] * Growth hormone (09/14/2020 10:20 AM EST) Growth Hormone 1.0 ng/mL [facility] Comment: Unstimulated hGH values do not have diagnostic relevance due to pulsatile pituitary secretion. In response to provocative agents, a peak stimulated hGH concentration less than 7-10 ng/mL has traditionally supported a diagnosis of growth hormone deficiency in a child with clinical signs and symptoms. However, this cutoff has not been validated for the Angelica assay. Growth H. Time 90 Min. Post cloNIDine [facility] Blood specimen (specimen) 09/14/2020 10:20 AM EST 09/14/2020 10:38 AM EST Narrative Resulting Agency Comment Spec In Lab Isabela June COMPUTER TECHNOLOGY TRAINER CHEMISTRY ORDERABLES Performing Organization Address [facility] Co de Phone Number [facility] [place] [address] * Growth hormone (09/14/2020 9:50 AM EST) Growth Hormone 2.4 ng/mL [facility] Comment: Unstimulated hGH values do not have diagnostic relevance due to pulsatile pituitary secretion. In response to provocative agents, a peak stimulated hGH concentration less than 7-10 ng/mL has traditionally supported a diagnosis of growth hormone deficiency in a child with clinical signs and symptoms. However, this cutoff has not been validated for the Angelica assay. Growth H. Time 60 Min. Post Arginine [facility] Blood specimen (specimen) 09/14/2020 9:50 AM EST 09/14/2020 10:07 AM EST Narrative Resulting Agency Comment Spec In Lab Isabela Watkins APRN CHEMISTRY ORDERABLES Performing Organization Address [facility] de Phone Number [facility] [place] [address] * Growth hormone (09/14/2020 9:20 AM EST) [facility] Growth Hormone 4.1 ng/mL [facility] Comment: Unstimulated hGH values do not have diagnostic relevance due to pulsatile pituitary secretion. In response to provocative agents, a peak stimulated hGH concentration less than 7-10 ng/mL has traditionally supported a diagnosis of growth hormone deficiency in a child with clinical signs and symptoms. However, this cutoff has not been validated for the Angelica assay. Growth H. Time 30 Min. Post cloNIDine [facility] Blood specimen (specimen) 09/14/2020 9:20 AM EST 09/14/2020 9:42 AM EST Narrative Resulting Agency Comment Spec In Lab Isabela June COMPUTER TECHNOLOGY TRAINER CHEMISTRY ORDERABLES Performing Organization Address [facility] Co de Phone Number [facility] [place] [address] * Glucose, random (09/14/2020 8:50 AM EST) Glucose 96 65 - 199 mg/dL [facility] Comment:Diabetes: >=200 mg/d L plus symptoms Blood specimen (specimen) 09/14/2020 8:50 AM EST 09/14/2020 9:11 AM EST Narrative Resulting Agency Comment Spec In Lab Isabela Watkins APRN CHEMISTRY ORDERABLES Performing Organization Address [facility] de Phone Number [facility] [place] [address] * Growth hormone (09/14/2020 8:50 AM EST) Growth Hormone 15.6 ng/mL [facility] Comment: Unstimulated hGH values do not have diagnostic relevance due to pulsatile pituitary secretion. In response to provocative agents, a peak stimulated hGH concentration less than 7-10 ng/mL has traditionally supported a diagnosis of growth hormone deficiency in a child with clinical signs and symptoms. However, this cutoff has not been validated for the Angelica assay. Growth H. Time 0 Min. [facility] Blood specimen (specimen) 09/14/2020 8:50 AM EST 09/14/2020 9:11 AM EST Narrative Resulting Agency Comment Spec In Lab Isabela Watkins APRN CHEMISTRY ORDERABLES Performing Organization Address [facility] de Phone Number [facility] [place] [address] * Cortisol (09/14/2020 8:50 AM EST) Cortisol 17.3 mcg/dL [facility] Comment: Reference ranges: ??AM (6-10am): ??4.8-19.5 mcg/dL ??PM (4-8pm) : ??2.5-11.9 mcg/dL Blood specimen (specimen) 09/14/2020 8:50 AM EST 09/14/2020 9:11 AM EST Narrative Resulting Agency Comment Spec In Lab Isabela Watkins APRN CHEMISTRY ORDERABLES [facility] [address] [place] [address] documented in this encounter Visit Diagnoses Diagnosis Low blood pressure reading Nonspecific low blood pressure reading Short stature Light-headed feeling Dizziness and giddiness Dizziness Dizziness and giddiness documented in this encounter Administered Medications Inactive Administered Medications - up to 3 most recent administrations Medication Order MAR Action Action Date Dose Rate Site arginine (R-Gene 10) injection 27.6 g 27.6 g (500 mg/kg/dose ? 55.2 kg), Intravenous, ONCE, 1 dose, On Mon09/14/20 at 0900 Given 09/14/2020 10:30 AM EST 27.6 g cloNIDine (Catapres) tablet 0.25 mg 0.25 mg (0.68956 mg/kg/dose), Oral, ONCE, 1 dose, On Mon09/14/20 at 0915, Routine Given 09/14/2020 8:50 AM EST 0.25 mg sodium chloride 0.9% 200 mL IV bolus Intravenous, ONCE, 1 dose, On Mon09/14/20 at 1245 New Bag 09/14/2020 11:40 AM EST sodium chloride 0.9% 250 mL IV bolus Intravenous, ONCE, 1 dose, On Mon09/14/20 at 0815 New Bag 09/14/2020 11:00 AM EST documented in this encounter Care Teams Data Clerk Relationship Specialty Start Date End Date Gricel Geronimo MD [address] [place] [address] PCP - General Pediatrics 07/09/18 documented as of this encounter
--- OUTSIDE RECORDS SUMMARY | 2024-08-22 22:33 | XMS_ITS | Clinical Summary ---
Author Organization [facility] Address [address] [place] [address] Care Team Providers Care Oral Hygienist Name Role Phone Unavailable Primary Care Provider Unavailabl e Social History Tobacco Use Types Packs/Day Years Used Date Smoking Tobacco: Never Assessed Sex and Gender Information Value Date Recorded Sex Assigned at Not on file Legal Sex Male 10:17 EDT Gender Identity Not on file Sexual Orientation Not on file Plan of Treatment Health Maintenance Due Date Last Done Comments Hepatitis C Screen 2004 Hepatitis B Vaccine (1 of 3 - 19+ 3-dose series) 02/25 COVID-19 Vaccine ( season) 2024
--- OUTSIDE RECORDS SUMMARY | 2024-08-22 22:33 | XMS_ITS | Encounter Summary ---
Author Organization [facility] [place] [address] Care Team Providers Care Cast Shell Grinder Name Role Phone Gricel Geronimo MD Primary Care Provider [phone] Encounter Details Date Type Department Care Team (Late st Contact Info) Description 08/06/2021 11:00 AM EDT Office [place] [id number] Isabela Watkins APRN [facility] [place] [address] Short stature; Pubertal delay Social History Tobacco Use Types Packs/Day Years [...] Mass Index 23 08/06/2021 10:50 AM EDT Body Mass Index Percentile 68.22% 08/06 10:50 AM EDT Growth Chart: CDC (Boys, 2-2 0 Years) documented in this encounter Progress Notes * Isabela Watkins APRN - 08/06/2021 11:00 AM EDT Images from the original note were not included. Reason for Visit: Follow up for short stature HPI: Brooklynn Guerrero is a 17-5/12 ths, year-old, healthy, adolescent male, history of autism, who is here for follow up of above accompanied by mom Initially seen 09/07/20 at which time we quickly moved to provocative testing due to age. This revealed only one value > 10, ruling out GH deficiency. He is on aromatase inhibitor. Over the interim, Brooklynn has been consistent with the Anastrozole. Short stature ROS/PCP chart/growth chart/bone age review as noted below. Overall, general health is good. Remainder of systems as noted below. Short stature ROS: [x] Yes [] No Always been on smaller side. [] Yes [x] No Family history of short stature [] Yes [x] No Bothered by small size. [x] Yes [] No Change in clothes size since last visit [x] Yes [] No Change in shoe size since last visit [x] Yes [] No Puberty started - axillary/body odor/pubic hair [] Yes [x] No Family history of pubertal delay [] Yes [x] No Good appetite [] Yes [x] No Constipation [] Yes [x] No Diarrhea [] Yes [x] No Change in energy level [] Yes [x] No Problems gaining weight Growth charts: Laboratory evaluation: Results for BROOKLYNN GUERRERO ( ) as of 08/02/2021 12:04 Ref. Range 09/14/2020 08:50 09/14/2020 09:20 09/14/2020 09:50 09/14/2020 10:20 09/14/2020 10:55 09/14/2020 11:30 09/14/2020 12:00 Cortisol Latest Units: mcg/dL 17.3 Growth Hormone Latest Units: ng/mL 15.6 4.1 2.4 1.0 0.6 1.5 5.2 Growth H. Time Unknown 0 Min. 30 Min. Post cloNIDine 60 Min. Post Arginine 90 Min. Post cloNIDine 0Min. Post Arginine 30 Min. Post Arginine 60 Min. Post cloNIDine Results for BROOKLYNN GUERRERO ( ) as of 08/02/2021 12:04 Ref. Range 09/07/2020 14:44 WBC Latest Ref [...] Ref Range: -2.0 - 2.0 SD -0.13 Bone age 1008/06/20: Bone age reviewed and read as bone age closer to 14-years, chronological age 16-2/12 ths years. Past medical history: Reviewed. Past Medical History: Diagnosis Date ??? Allergies ??? Anxiety ??? Autism ??? Depression ??? Pubertal delay ??? Short stature Past surgical history: Reviewed. None. Past social history: Reviewed. Lives with: mom, step dad , sister Grade in school: 11 th grade. Going well. Extracurricular Activities: computers Step dad's occupation: Breather Family history: Reviewed. Mom 5 ft 3 inches. Dad 6 ft. Family History Problem Relation Age of Onset ??? Depression Mother ??? Asthma Father ??? Mental Illness Father ??? Other Neg Hx short stature ??? Thyroid Disease Neg Hx ??? Celiac Disease Neg Hx ??? Autoimmune Disorder Neg Hx Medications: Current Outpatient Medications on File Prior to Visit Medication Sig Dispense Refill ??? anastrozole (Arimidex) 1 mg Tablet Take 1 tablet by mouth daily. 90 tablet 1 No current facility-administered medications on file prior to visit. Allergies: Allergies as of 08/06/2021 - Review Complete 04/05/2021 Allergen Reaction Noted ??? Omnicef [cefdinir] Rash 09/14/2020 ??? Pcn [penicillins] Rash 09/14/2020 Immunizations: Up-to-date. Review of Systems: General: Overall, [...] problems falling or staying asleep. Physical Exam: Brooklynn is a 17-5/12 ths, year-old, pleasant, adolescent male. Vital Signs New Set of Vitals Flowsheets 08/06/21 10:50 AM BP 127/67?? Pulse 78?? Weight 62.5??kg??(137??lb??14.4??oz)?? Height 164.9??cm??(5'??4.92)?? Pain Score ?0??-??No??pain?? Age Percentiles BP 86 % / 53 % Weight 37 % Height 7 % BMI 68 % Other Vitals BMI 23.00 kg/m2 BSA 1.69 m2 Normal Abnormal Comments Tone/Appearance X Small size. Appears younger than stated age. No dysmorphic features. Skin X Oil skin, few pimples Head/Neck/thyroid X No thyromegaly Eyes X ENT X Teeth X Lungs X Heart X Abdomen X Genitalia/breasts Not performed Musculoskeletal X Normal metacarpals. No Madelung deformity Active problems: Patient Active Problem List Diagnosis Code ??? Short stature R62.52 ??? Pubertal delay E30.0 ??? Allergies T78.40XA ??? Anxiety F41.9 ??? Depression F32.A ??? Autism F84.0 Assessment: Brooklynn has had normal interval growth velocity with height today 164.9 cm, 7 th percentile. Weight gain appropriate. His initial short stature evaluation was normal, including provocative growth hormone testing to rule out growth hormone deficiency. His bone age is delayed, showing good catch up potential and yielding a final height within his genetic potential. He is tolerating the Anastrozole and will continue for one more year. Will plan to obtain repeat bone age today to reassessremaining growth potential. Family comfortable with this plan. Plan: 1. Repeat bone age today. 2. Follow up visit in one year at which time will discontinue Anastrozole and discharge from endocrine clinic. Copy: Gricel [place]eron[place] [address] Today's encounter took a total time of 30 minutes, and that time included: Preparing to see the patient (review records, tests), Obtaining and/or reviewing separately obtained historical data, Performing a medically appropriate examination and/or evaluation , Counseling & educating the patient/family/caregiver on growth velocity/growth charts reviewed Ordering medications, tests, and/or procedures, Referring and communicating with other healthcare professionals , Documenting clinical information in the electronic or other health record, Independently interpreting results & communicating results to the patient/family/caregiver and Care coordination . documented in this encounter Plan of Treatment Not on file documented as of this encounter Results * XR Bone Age [...] who have questions please contact the health daycare assistant that requested your imaging first. ? Electronically signed by: Arun Puri MD, [facility] ([phone]), at 08/06/2021 11:55 AM Narrative 08/06/2021 11:55 AM EDT EXAMINATION: XR [...] patients who have questions please contactthe health daycare assistant that requested your imaging first. Electronically signed by: Arun Puri MD, [facility]([phone]), at 08/06/2021 11:55 AM Isabela Watkins SORAYA IMG DX ORDERABLES documented in this encounter Visit Diagnoses Diagnosis Short stature Pubertal delay Delay in sexual development and puberty, not elsewhere classified Short stature documented in this encounter Care Teams Cast Shell Grinder Relationship Specialty Start Date End Date Gricel Geronimo MD [address] [place] [address] PCP - General Pediatrics 07/09/18 documented as of this encounter
--- OUTSIDE RECORDS SUMMARY | 2024-08-22 22:33 | XMS_ITS | Referral Summary ---
Author Organization [facility] Address [address] [place] [address] Care Team Providers Care Binder And Box Builder Name Role Phone Unavailable Primary Care Provider Unavailabl e Social History Tobacco Use Types Packs/Day Years Used Date Smoking Tobacco: Never Assessed Sex and Gender Information Value Date Recorded Sex Assigned at Not on file Legal Sex Male 10:17 EDT Gender Identity Not on file Sexual Orientation Not on file Plan of Treatment Not on file
== END 2024-08-22 22:32 | disposition home or self-care (01) ==
LOC: LBN 22:31
PROVIDERS: Visit Provider Physician Assistant Medical
DX: J02.9 Acute pharyngitis, unspecified (principal)
CPT/HCPCS: 87070